=== PATIENT | male | born 1950 | race Caucasian/White ===

== ENCOUNTER 2025-03-23 07:03 | Day surgery (SDC) | payer MEDICARE, OTHER ==
[~2025-03-23 07:03] MED LIST: Sodium Chloride 0.9% 10 ML Syringe FLUSH PRN
[2025-03-23] MEDS: Lactated Ringers 1,000 ML IV SCH (07:25)
[2025-03-23] MEDS ORDERED: Midazolam 1 MG/ML 2 ML SDV ONE (07:57)
[2025-03-23] MEDS ORDERED: Propofol 200 MG/20 ML SDV ONE (07:57)
== END 2025-03-23 10:20 | disposition home or self-care (01) ==
LOC: KA.SDS 07:03
PROVIDERS: ATTEND Family Medicine
DX: Z12.11 Encounter for screening for malignant neoplasm of colon (principal); K62.1 Rectal polyp; K57.30 Diverticulosis of large intestine without perforation or abscess without bleeding; K64.8 Other hemorrhoids; K64.4 Residual hemorrhoidal skin tags; I10 Essential (primary) hypertension; E03.9 Hypothyroidism, unspecified; Z87.891 Personal history of nicotine dependence; Z79.899 Other long term (current) drug therapy; Z79.890 Hormone replacement therapy; Z79.82 Long term (current) use of aspirin; Z86.0101 Personal history of adenomatous and serrated colon polyps
CPT/HCPCS: 00811; 88305; 99100; J2250; J2704; J7120